=== PATIENT | male | born 1995 | race African-American/Black ===

== ENCOUNTER 2016-12-02 20:00 | Inpatient (IN) | payer MEDICAID ==
--- NOTE | ~2016-12-02 | PN ---
Unit #: [id number] #: [id number] Patient: EDIN PEREZ [id number] [facility] [address] [place] [address] [id number] MR#: [id number] NAME: EDIN PEREZ ROOM: 82 Age: 21 Sex: M Admission Date: 12/02/2016 : 1995 Attending Physician: Ld Villa M.D. Admitting Physician: Ld Villa M.D. Primary Care Physician: Primary Care Physician Hannah HENSON PROGRESS NOTES DATE December 04, 2016 DISCUSSION Mr. Perez is a 21-year-old white male, who was seen today and chart was reviewed and the case was discussed with the staff. He appears to be doing better and reports improvement in his anxiety and his detoxing. Meanwhile, he has been taking the medications and tolerating them fairly well with no reported side effects. MENTAL STATUS EXAMINATION Young white male, who was casually dressed with fair personal hygiene and appears to be in no acute distress or discomfort. He was awake and alert with intact orientation. His mood is anxious with a congruent affect. He denies any suicidal or homicidal ideations. His insight and judgment remain slightly impaired. TREATMENT PLAN 1. We will continue him on his current medications and treatment protocol, and will monitor his response to the medications, and make further adjustments as needed. 2. We will continue to followup. Dictated by... Ld Villa M.D. WADE/patricia TD: 12/04/2016 10:46 JOB #: [id number] Unit #: [id number] #: [id number] Patient: EDIN PEREZ PROGRESS NOTES Page 1 of 1 X Ld Villa MD PROGRESS NOTE
--- NOTE | ~2016-12-02 | PA ---
Unit #: [id number] #: [id number] Patient: EDIN PEREZ [id number] [facility] [address] [place] [address] [id number] MR#: [id number] NAME: EDIN PEREZ ROOM: P182 Age: 21 Sex: M Admission Date: 12/02/2016 : 1995 Date of Assessment: Attending Physician: Ld Villa M.D. Admitting Physician: Ld Villa M.D. Primary Care Physician: Primary Care Physician No PSYCHIATRIC ASSESSMENT IDENTIFYING DATA Mr. Perez is a 21-year-old single white male, who is a resident of [place], [place] and was transferred to us from [facility]. CHIEF COMPLAINT "I have been using a gram of IV heroin daily." HISTORY OF PRESENT ILLNESS Mr. Perez is a 21-year-old white male, who took himself to [facility] in [place], reporting that he has been using IV heroin on daily basis, last use couple of days ago and indicating significant withdrawal symptoms and reports that his symptoms are too much for him to bear and that he needs help. 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 Denies any suicidal ideations, intent, or plan. SUBSTANCE ABUSE HISTORY The patient reports history of experimentation with cannabis and heroin and currently heroin has been his drug of choice as he reports that he has been using a gram of heroin a day. PAST PSYCHIATRIC HISTORY The patient has a history of chemical dependency treatment at [facility] in 08/2016; however, currently he is not active in any treatment program, he is not seeing a psychiatrist, and is not taking any psychotropic medications. PAST MEDICAL HISTORY Hepatitis C per medication. ALLERGIES Prednisone. PERSONAL AND SOCIAL HISTORY A 21-year-old white male, who reports that he is single, unemployed, and lives with his father and has fairly decent social support system. MENTAL STATUS EXAMINATION Young white male, who was casually dressed with fair personal hygiene, appears to be in no acute distress or discomfort. He was awake and alert Unit #: [id number] #: [id number] Patient: EDIN PEREZ on interaction with intact orientation to time, place, and person. His mood was anxious and depressed with a congruent affect. His speech was slow and restricted in content. His thought processes were disorganized with some looseness of associations. He denies any suicidal or homicidal ideations and also denies any auditory or visual hallucinations. His insight and judgment remain significantly impaired. DIAGNOSTIC IMPRESSION Psychiatric: Opioid dependence, moderate and acute withdrawals; opioid-induced mood disorder. Medical: Hepatitis C. Stressors: Moderate psychosocial stressors. TREATMENT PLAN 1. The patient has presented with history of substance abuse and mood disorder, and has been decompensating and will need inpatient hospitalization for withdrawal. We will start him on detox protocol. We will closely monitor for any worsening withdrawal symptoms. 2. Supportive therapy was provided to the patient. ESTIMATED LENGTH OF STAY 5 to 7 days. ABILITY TO HELP SELF Limited. WILLINGNESS TO HELP SELF The patient appears to be willing to help self. STRENGTHS 1. Communicative. 2. Cooperative. PROBLEMS 1. Chronic dysphoric symptoms. 2. Chronic chemical dependency. 3. Poor social support system. DISCHARGE CRITERIA This will be contingent upon the patient's ability to go through detox without having any significant withdrawal symptoms, ability to stay safe to himself, particularly after discharge from the hospital. Dictated by... Ld Villa M.D. WADE/wilbur TD: 12/03/2016 10:26 JOB #: [id number] Unit #: [id number] #: [id number] Patient: EDIN PEREZ PSYCHIATRIC ASSESSMENT Page 1 of 1 X Ld Villa MD PSYCHIATRIC ASSESSMENT
--- NOTE | ~2016-12-02 | DS ---
Unit #: [id number] #: [id number] Patient: EDIN PEREZ [id number] [place] [address] [id number] MR#: [id number] NAME: EDIN PEREZ ROOM: [facility] Age: 21 Sex: M Admission Date: 12/02/2016 : 1995 Discharge Date: 12/05/2016 Attending Physician: Ld Villa M.D. Primary Care Physician: Primary Care Physician No DISCHARGE SUMMARY IDENTIFICATION DATA Mr. Perez is a 21-year-old white male with a history of substance abuse and withdrawal who presented to the hospital on a voluntary basis. DISCHARGE DIAGNOSES PSYCHIATRIC: Opioid dependence, moderate, in acute withdrawal. Opioid-induced mood disorder. MEDICAL: None. STRESSORS: Moderate psychosocial stressors. HISTORY OF PRESENT ILLNESS Same as in initial psychiatric evaluation. PAST PSYCHIATRIC HISTORY Same as in initial psychiatric evaluation. PAST MEDICAL HISTORY Same as in initial psychiatric evaluation. HOSPITAL COURSE The patient was admitted to the adult chemical dependence unit at [facility]. He was oriented to the hospital environment. Routine p.r.n. medications were initiated, and he was started back on her home medications and detox protocol for opioids was initiated and (1) ___ appeared to be showing some therapeutic response and was willing to continue treatment on outpatient basis, and as such it was decided that she will be discharged home, and we will continue treatment on outpatient basis. DISCHARGE MEDICATIONS None. CONDITION AT DISCHARGE Stable. PROGNOSIS Fair. Dictated by... Sonido Jackson/bzg Unit #: [id number] #: [id number] Patient: EDIN PEREZ TD: 12/06/2016 06:52 JOB #: [id number] DISCHARGE SUMMARY Page 1 of 1 X Ld Villa MD X DISCHARGE SUMMARY
--- NOTE | ~2016-12-02 | HP ---
Unit #: [id number] #: [id number] Patient: EDIN PEREZ [id number] [place] [address] [id number] MR#: [id number] NAME: EDIN PEREZ ROOM: [facility] Age: 21 Sex: M Admission Date: 12/02/2016 : 1995 Attending Physician: Ld Villa M.D. Admitting Physician: Ld Villa M.D. Primary Care Physician: Primary Care Physician No HISTORY AND PHYSICAL HISTORY OF PRESENT ILLNESS The patient is a 21-year-old male admitted to [facility] on 12/02/2016, to detox from heroin. PAST MEDICAL HISTORY Hepatitis C. PAST SURGICAL HISTORY Patient denies. SOCIAL HISTORY He works for himself laying tile. He smokes a pack of cigarettes per day and uses 1 gram of heroin daily. FAMILY MEDICAL HISTORY Noncontributory ALLERGIES Prednisone CURRENT MEDICATIONS The patient is not on any home medications. REVIEW OF SYSTEMS CONSTITUTIONAL: No fever or chills. HEENT: Denies any sore throat, ear pain or runny nose. CARDIOVASCULAR: Denies chest pain, irregular heart rhythm or palpitations. CHEST: Denies shortness of breath or cough. No hemoptysis. GASTROINTESTINAL: Denies nausea, vomiting, diarrhea or chronic constipation. ENDOCRINE: Denies history of increased thirst or urination. No recent significant weight loss or gain. GENITOURINARY: Denies dysuria, frequency, or hematuria. SKIN: Denies any rashes. HEMATOLOGIC: Denies history of increased bleeding or bruising. MUSCULOSKELETAL: Denies any hot, swollen joints. No generalized muscle pain. NEUROLOGIC: Denies problems with vision or speech. No frequent, severe headaches. No numbness, tingling or weakness in any extremities. Denies loss of bladder or bowel control. PHYSICAL EXAMINATION GENERAL: He is awake, alert, and oriented in no acute distress. Unit #: [id number] #: [id number] Patient: EDIN PEREZ VITAL SIGNS: Temperature 97.6, heart rate 80, respirations 18, blood pressure 122/83. HEIGHT: 6 feet 1 inch. WEIGHT: 150 pounds. SKIN: Warm and dry without rash or lesion. HEENT: Normocephalic. TMs not viewed. Oral and nasal passages clear. Conjunctivae clear. PERRLA. EOMs intact. NECK: Supple without lymphadenopathy or thyromegaly. HEART: Regular rate and rhythm without murmur. LUNGS: Clear. ABDOMEN: Soft, nontender. : Not done. EXTREMITIES: No evidence of cyanosis, clubbing or edema. Moves all without focal deficit. NEUROLOGICAL: Grossly within normal limits. Cranial Nerves: II: Visual sykes are intact. III, IV AND : Extraocular movements are intact. Pupils are equal, round and reactive to light. V: Facial sensation is grossly normal. VII: Facial movements and expression are normal. VIII: Auditory acuity grossly intact. IX, X: Uvula is midline. Phonation is normal. XI: Patient shrugs shoulders and turns head normally. XII: Tongue protrudes in the midline. Sensory and Motor Function: Sensory and motor sensation is grossly normal. Motor: moves all extremities well. IMPRESSION 1. Psychiatric admission. 2. Hepatitis C. 3. Heroin abuse. 4. Nicotine dependence. RECOMMENDATIONS 1. Psychiatric, per psychiatrist. 2. Medical, no contraindications to participating in facility activities. MEDICAL PROGNOSIS Good. MEDICAL CONDITION Stable. Dictated by... Shea Grant/raven TD: 12/03/2016 14:36 JOB #: [id number] Unit #: [id number] #: [id number] Patient: EDIN PEREZ HISTORY AND PHYSICAL Page 1 of 1 X ISADORA FERRARO APRN HISTORY AND PHYSICAL
[2016-12-03 12:36] LABS: BASOPHIL# 0.1 X10e3 (0-0.3); BASOPHIL% 0.9 % (0-2.5); EOSINOPHIL% 0.4 % (0.0-7.0); HEMATOCRIT 44.9 % (38.0-50.0); HEMOGLOBIN 15.1 gm/dL (13.0-16.0); LYMPHOCYTE# 2.1 X10e3 (1.0-3.5); LYMPHOCYTE% 33.5 % (17.0-45.0); MEAN CELL VOLUME 86.7 FL (83-96); MEAN CORPUSCULAR HEMOGLOBIN 29.1 PG (28-34); MEAN CORPUSCULAR HGB CONC 33.6 g/dL (30-36); MONOCYTE# 0.7 X10e3 (0-1.0); MONOCYTE% 11.3 % (3.0-12.0); NEUTROPHIL# 3.5 X10e3 (1.5-7.1); NEUTROPHIL% 53.9 % (40-75); PLATELET COUNT 237 X10e3 (140-420); RED BLOOD COUNT 5.17 X10e (3.90-5.60); RED CELL DISTRIBUTION WIDTH 13.1 % (11.0-15.5); WHITE BLOOD COUNT 6.4 X10e3 (4.0-10.5)
[2016-12-03 12:37] LABS: DIFF IND NO
[2016-12-03 12:49] LABS: ALBUMIN SERUM 3.6 g/dL (3.5-5.0); BILIRUBIN,TOTAL 0.3 mg/dL (0.2-2.0); CALCIUM SERUM 8.8 mg/dL (8.4-10.2); CREATININE SERUM 0.8 mg/dL (0.6-1.4); GLOM FILT RATE Estimated 148.1 mL/min (>60); POTASSIUM 4.3 mmol/L (3.5-5.1); PROTEIN TOTAL SERUM 6.6 g/dL (6.0-8.3)
[2016-12-04 09:41] LABS: URINE APPEARANCE CLEAR; URINE BILIRUBIN NEG (NEG); URINE BLOOD NEG (NEG); URINE COLOR YELLOW; URINE GLUCOSE NEG (NEG); URINE KETONE NEG (NEG); URINE LEUKOCYTE ESTERASE NEG (NEG); URINE NITRATE NEG (NEG); URINE PH 6.5 (5-8); URINE PROTEIN NEG (NEG); URINE SPECIFIC GRAVITY 1.025 (1.003-1.035)
[2016-12-04 10:26] LABS: AMPHETAMINE NEG (NEG); BARBITURATES NEG (NEG); BENZODIAZEPINES NEG (NEG); COCAINE NEG (NEG); MARIJUANA NEG (NEG); OPIATES NEG (NEG); TRICYCLIC ANTIDEPRESSANTS NEG (NEG); U METHADONE NEG (NEG)
== END 2016-12-05 09:10 | disposition home or self-care (01) | DRG 897 ==
LOC: P1E 22:34
PROVIDERS: Psychiatry & Neurology Psychiatry
PROC: HZ2ZZZZ Detoxification Services for Substance Abuse Treatment (ICD-10-PCS; principal; 2016-12-02)
DX: F11.23 Opioid dependence with withdrawal (principal); F11.24 Opioid dependence with opioid-induced mood disorder; B19.20 Unspecified viral hepatitis C without hepatic coma; F17.210 Nicotine dependence, cigarettes, uncomplicated
CPT/HCPCS: 80053; 80307; 81003; 85025; 86592